=== PATIENT | female | born 1985 | race Caucasian/White ===

== ENCOUNTER 2016-10-11 14:32 | Emergency (ER) | payer OTHER ==
[~2016-10-11] VITALS: Ht 167.6 cm; Wt 59.0 kg
[~2016-10-11 14:32] MED LIST: ALPR0.5T2 PO
[2016-10-11 16:10] VITALS: BP 126/87
--- NOTE | 2016-10-11 17:05 | NUR ---
Patient to bed 07.
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
--- NOTE | 2016-10-11 17:15 | NUR ---
SANDRA BARRETT ASSESSING AAO PT AT BEDSIDE
[2016-10-11] MEDS ORDERED: MORPHINE SULFATE 4 MG/ML SYR IM ONE (17:30)
[2016-10-11] MEDS ORDERED: LIDOCAINE 1% ED 50 ML ONE (18:28)
[2016-10-11 19:05] VITALS: BP 112/72
--- NOTE | 2016-10-11 19:05 | NUR ---
Patient discharged with v/s stable. Written and verbal after care instructions given and explained. Patient alert, oriented and verbalized understanding of instructions. Ambulatory with steady gait. All questions addressed prior to discharge. ID band removed. Patient advised to follow up with PMD. Rx of BACTRIM, NORCO, KEFLEX, BACTRIM given. Patient educated on indication of medication including possible reaction and side effects. Opportunity to ask questions provided and answered.
== END 2016-10-11 19:05 | disposition home or self-care (01) ==
LOC: MED 14:32
DX: L02.31 Cutaneous abscess of buttock (principal)
CPT/HCPCS: 10061; 81025; 96372; 99284; J2001; J2270

== ENCOUNTER 2017-01-18 14:14 | Emergency (ER) | payer OTHER ==
[~2017-01-18] VITALS: Ht 167.6 cm; Wt 61.9 kg
[2017-01-18 14:24] VITALS: BP 142/68
--- NOTE | 2017-01-18 15:03 | NUR ---
Patient ambulated to bed 6. RN evaluating patient at bedside.
--- NOTE | 2017-01-18 15:18 | NUR ---
PATIENT BIB MOTHER C/O HEMATURIA WITH GENERALIZED WEAKNESS X 1 WEEK.PT STATES SHE Has N/V and chills ; SKIN IS PINK/WARM/DRY; AAOX4 WITH EVEN AND STEADY GAIT; LUNGS CLEAR BL; HR EVEN AND REGULAR; PT DENIES ANY CP, SOB, OR COUGH AT THIS TIME; PATIENT STATES PAIN OF 8/10 AT THIS TIME;PATIENT POSITIONED FOR COMFORT; HOB ELEVATED; BEDRAILS UP X2; BED DOWN. ALL MONITORS IN PLACED;ER MD MADE AWARE OF PT STATUS.
--- NOTE | 2017-01-18 16:04 | NUR ---
PT AMBULATED TO THE RESTROOM.
--- NOTE | 2017-01-18 16:12 | NUR ---
DR COTTRELL AT BEDSIDE.
[2017-01-18] MEDS ORDERED: KETOROLAC 60 MG/2 ML VIAL IM ONE (16:15)
[2017-01-18] MEDS ORDERED: ONDANSETRON 4 MG ODT PO ONE (16:15)
--- NOTE | 2017-01-18 16:28 | NUR ---
MOTHER STATES "CAN WE GO HOME NOW" I NEED TO WORK T 5"EXPLAINED TO PT AND MOTHER THAT I NEED TO REEVALUATE MEDS;
[2017-01-18 16:37] VITALS: BP 128/75
--- NOTE | 2017-01-18 16:37 | NUR ---
Patient discharged with v/s stable. Written and verbal after care instructions given and explained. Patient alert, oriented and verbalized understanding of instructions. Ambulatory with steady gait. All questions addressed prior to discharge. ID band removed. Patient advised to follow up with PMD. Rx of NORCO,CIPRO,MOTRIN AND ZOFRAN given. Patient educated on indication of medication including possible reaction and side effects. Opportunity to ask questions provided and answered.
== END 2017-01-18 16:37 | disposition home or self-care (01) ==
LOC: MED 14:14
DX: N12 Tubulo-interstitial nephritis, not specified as acute or chronic (principal); R11.2 Nausea with vomiting, unspecified; Z79.899 Other long term (current) drug therapy; Z88.5 Allergy status to narcotic agent; Z90.89 Acquired absence of other organs
CPT/HCPCS: 81002; 81025; 96372; 99283; J1885; S0119

== ENCOUNTER 2017-05-25 15:39 | Emergency (ER) | payer OTHER ==
[~2017-05-25] VITALS: Ht 167.6 cm; Wt 63.0 kg
[2017-05-25 15:57] VITALS: BP 114/68
--- NOTE | 2017-05-25 16:01 | NUR ---
pt to lobby awaiting room, er aware, pt is ao, vss, nad
[2017-05-25] MEDS ORDERED: KETOROLAC 60 MG/2 ML VIAL IM ONE (16:15)
--- NOTE | 2017-05-25 17:09 | NUR ---
bib self with c/o 11/21 right wrist pain x 1 wk; pt sts hx of wrist pain; pt denies any recent injury or falls; pt sts "working out more and lifting heavy weights" hx--depression, anemia, PT AAO, NO SWEELING NOTED ON RIGHT WRIST, PER PT SHE DOESNT WANT TRAMADOL BEC SHE SAID SHE HAS IT AT HOME AND ITS NOT EFFECTIVE, WILL INFORM
[2017-05-25 17:20] VITALS: BP 112/89
--- NOTE | 2017-05-25 17:21 | NUR ---
Patient discharged with v/s stable. Written and verbal after care instructions given and explained. Patient alert, oriented and verbalized understanding of instructions. Ambulatory with steady gait. All questions addressed prior to discharge. ID band removed. Patient advised to follow up with PMD. Rx of tramadol and motrin given. Patient educated on indication of medication including possible reaction and side effects. Opportunity to ask questions provided and answered.
== END 2017-05-25 17:21 | disposition home or self-care (01) ==
LOC: MED 15:39
DX: G89.29 Other chronic pain (principal); M25.531 Pain in right wrist; Z88.5 Allergy status to narcotic agent
CPT/HCPCS: 73110; 96372; 99284; J1885

== ENCOUNTER 2020-04-24 03:10 | Emergency (ER) | payer OTHER ==
[~2020-04-24] VITALS: Ht 167.6 cm; Wt 61.2 kg
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
[2020-04-24 03:21] VITALS: BP 117/73
[2020-04-24] MEDS ORDERED: ACETAMINOPHEN EXTRA STRENGTH 500 MG TAB PO ONE (03:30)
[2020-04-24 04:04] VITALS: BP 117/73
[2020-04-24 04:42] LABS: BARBITURATE, URINE NEGATIVE ng/ml (NEG <=200); BENZODIAZEPINE, URINE POSITIVE ng/mL (NEG <=200); CANNABINOID, URINE NEGATIVE ng/mL (NEG <=50); COCAINE, URINE NEGATIVE ng/mL (NEG <=300); OPIATE, URINE POSITIVE ng/mL (NEG <=2000); PHENCYCLIDINE SCREEN,URINE NEGATIVE ng/mL (NEG <=25)
== END 2020-04-24 04:04 | disposition home or self-care (01) ==
LOC: MED 03:10
DX: M54.2 Cervicalgia (principal); Z88.5 Allergy status to narcotic agent; Z71.6 Tobacco abuse counseling; Z79.899 Other long term (current) drug therapy
CPT/HCPCS: 80305; 81002; 99283